=== PATIENT | male | born 1960 | race Caucasian/White ===

== ENCOUNTER → 2021-08-17 10:12 | Outpatient (CLI) | payer OTHER, MEDICAID, SELFPAY ==
--- NOTE | 2021-08-17 10:13 | DI.US.S_ITS ---
PROCEDURE: US SOFT TISSUE HEAD AND NECK INDICATIONS: SWOLLEN NODES BILATERAL CERVICAL CHAIN TECHNIQUE: Real-time scanning was performed of the neck region of interest, with image documentation. COMPARISON: None. FINDINGS: Scanning is performed at the areas clinical concern involving the left submandibular region. Within these areas, no masses are seen. There are no enlarged lymph nodes. IMPRESSION: No enlarged lymph nodes are seen. Negative for masses. Dictated by: Maikol Rabago M.D. on 08/17/2021 at 10:06 Approved by: Maikol Rabago M.D. on 08/17/2021 at 10:07
== END ==
PROVIDERS: PCP Student in an Organized Health Care Education/Training Program; Referring Provider Student in an Organized Health Care Education/Training Program; Visit Provider Student in an Organized Health Care Education/Training Program
DX: R59.0 Localized enlarged lymph nodes (principal)
CPT/HCPCS: 76536

== ENCOUNTER → 2022-08-26 16:02 | Outpatient (CLI) | payer OTHER, SELFPAY ==
[2022-08-26 17:16] LABS: Hemoglobin A1C% w Est Avg Glu 5.5 % (4.0-6.0)
[2022-08-26 17:43] LABS: Prostate Specific Antigen Scrn 4.42 ng/mL (0.1-4.0)
[2022-08-26 18:23] LABS: BUN Creatinine Ratio 27.8 (6-22); Blood Urea Nitrogen 22 mg/dL (9-20); Calcium 8.9 mg/dL (8.4-10.2); Carbon Dioxide 28 mmol/L (22-32); Chloride 102 mmol/L (98-107); Cholesterol 184 mg/dL (140-199); Estimated Glomerular Filt Rate > 60 mL/min (>60); Glucose 71 mg/dL (80-110); HDL Cholesterol 44 mg/dL (40-60); HEMOLYSIS < 15 (0-50); LDL Cholesterol Calculated 78 mg/dL (<100); Potassium 4.3 mmol/L (3.4-5.1); Sodium 140 mmol/L (137-145); Triglycerides 309 mg/dL (35-150)
[2022-08-26 19:11] LABS: Hep C Virus Ab w/Reflex Quant NEGATIVE s/c (NEGATIVE)
== END ==
PROVIDERS: PCP Student in an Organized Health Care Education/Training Program; Referring Provider Urology; Visit Provider Urology
DX: E78.2 Mixed hyperlipidemia (principal); Z11.59 Encounter for screening for other viral diseases; R73.03 Prediabetes; I10 Essential (primary) hypertension; Z12.5 Encounter for screening for malignant neoplasm of prostate
CPT/HCPCS: 36415; 80048; 80061; 83036; 86803; G0103

== ENCOUNTER → 2022-09-19 15:11 | Outpatient (CLI) | payer OTHER, SELFPAY ==
[2022-09-21 08:26] LABS: PSA Free % 16.2 % (.); PSA, Total 2.6 ng/mL (0.0-4.0)
== END ==
PROVIDERS: PCP Student in an Organized Health Care Education/Training Program; Referring Provider Urology; Visit Provider Urology
DX: N40.0 Benign prostatic hyperplasia without lower urinary tract symptoms (principal); R39.9 Unspecified symptoms and signs involving the genitourinary system
CPT/HCPCS: 36415; 84153; 84154

== ENCOUNTER → 2023-06-24 14:39 | Outpatient (CLI) | payer OTHER, MEDICARE, SELFPAY ==
[2023-06-24 15:14] LABS: Hematocrit 38.9 % (41-53); Hemoglobin 13.4 g/dL (13.5-17.5); Mean Corpuscular HGB Conc 34.5 % (30-36); Mean Corpuscular Hemoglobin 29.4 PG (26-34); Mean Corpuscular Volume 85.2 fL (80-100); Platelet Count 139 X10^3/uL (150-400); Red Blood Cell Count 4.56 X10^6/uL (4.5-5.9); Red Cell Distribution Width 13.5 % (11.6-14.8); White Blood Cell Count 5.8 X10^3/uL (4.5-11.0)
[2023-06-24 15:31] LABS: Alanine Aminotransferase 32 IU/L (<50); Albumin 4.4 g/dL (3.5-5.0); Albumin Globulin Ratio 1.6 (1.0-2.8); Alkaline Phosphatase 54 U/L (38-126); Aspartate Aminotransferase 36 IU/L (17-59); BUN Creatinine Ratio 32.4 (6-22); Bilirubin Total 1.1 mg/dL (0.2-1.3); Blood Urea Nitrogen 22 mg/dL (9-20); Carbon Dioxide 25 mmol/L (22-32); Chloride 102 mmol/L (98-107); Cholesterol 172 mg/dL (140-199); Estimated Glomerular Filt Rate > 60 mL/min (>60); Globulin 2.7 g/dL (1.7-4.1); Glucose 108 mg/dL (80-110); HDL Cholesterol 42 mg/dL (40-60); HEMOLYSIS 23 (0-50); LDL Cholesterol Calculated 80 mg/dL (<100); Potassium 4.3 mmol/L (3.4-5.1); Sodium 136 mmol/L (137-145); Total Protein 7.1 g/dL (6.3-8.2); Triglycerides 252 mg/dL (35-150)
[2023-06-24 16:00] LABS: TSH w/ Reflex to FT4 1.63 uIU/mL (0.47-4.68)
== END ==
PROVIDERS: PCP Internal Medicine; Referring Provider Internal Medicine; Visit Provider Internal Medicine
DX: E78.2 Mixed hyperlipidemia (principal); I10 Essential (primary) hypertension
CPT/HCPCS: 36415; 80053; 80061; 84443; 85027

== ENCOUNTER → 2023-10-15 10:55 | Outpatient (CLI) | payer MEDICARE, MEDICAID, SELFPAY ==
[2023-10-15 11:32] LABS: Hemoglobin A1C% w Est Avg Glu 5.5 % (4.0-6.0)
[2023-10-15 12:31] LABS: Vitamin B12 318 pg/mL (239-931)
[2023-10-17 16:54] LABS: Alpha-1-Globulin 0.2 g/dL (0.0-0.4); Alpha-2-Globulin 0.6 g/dL (0.4-1.0); Gamma Globulin 0.8 g/dL (0.4-1.8); Globulin Total 2.7 g/dL (2.2-3.9); Protein, Total 6.7 g/dL (6.0-8.5)
[2023-10-18 07:36] LABS: PSA Free % 16.6 % (.); PSA, Total 3.2 ng/mL (0.0-4.0)
== END ==
LOC: LAB 10:56
PROVIDERS: PCP Internal Medicine; Referring Provider Internal Medicine; Visit Provider Internal Medicine
DX: R73.01 Impaired fasting glucose (principal); E53.8 Deficiency of other specified B group vitamins; R77.9 Abnormality of plasma protein, unspecified; R97.20 Elevated prostate specific antigen [PSA]
CPT/HCPCS: 36415; 82607; 83036; 84153; 84154; 84155; 84165

== ENCOUNTER 2023-11-28 12:12 | Day surgery (SDC) | payer MEDICARE, MEDICAID, SELFPAY ==
[2023-11-28] MEDS: LACTATED RINGERS 1,000 ML 42 ML IV (12:23)
[2023-11-28 12:40] VITALS: BP 146/85; PULSE 77; RESP 18; TEMP 37.1; O2SAT 96
--- NOTE | 2023-11-28 13:05 | P.HP_ITS ---
History of Present Illness History of Present Illness Date Patient Seen: 11/28/23 Time Patient Seen: 13:05 Chief complaint: Colonoscopy Narrative: 63-year-old man here for screening colonoscopy. Personal history of colonic polyps last colonoscopy 5 years ago. No family history of intestinal malignancy. He has history of diverticular disease occasionally has pain with bowel movements. [facility] Medical History Polyneuropathy, unspecified Allergic rhinitis History of colonic polyps Chronic low back pain Primary osteoarthritis involving multiple joints Severe obesity (BMI 35.0-35.9 with comorbidity) Impaired fasting glucose Bladder outlet obstruction Elevated PSA Benign prostatic hyperplasia with lower urinary tract symptoms Unilateral post-traumatic osteoarthritis, left knee Cervical lymphadenopathy Primary osteoarthritis of right knee Prurigo nodularis Nuclear sclerosis Vitreous syneresis CAD (coronary artery disease) Family History Father Cancer Hyperlipidemia Hypertension Eczema Gout Hearing impairment Mother Hypertension Social History marital status: details: ([place]), retired/disabled [employer], [employer] number of children: 4 occupational status: other Smoking Status: Former smoker Tobacco: How many years used: 10 alcohol intake: former caffeine: Yes Type(s) of exercise: walking frequency: daily duration: > 90 minutes/day Meds Home Medications and Allergies Home Medications Medication Instructions Recorded Confirmed Type Vitamin E 1 cap PO DAILY 05/16/21 11/28/23 History aspirin 81 mg tablet,delayed 81 mg PO DAILY 05/16/21 11/28/23 History release (Adult Low Dose Aspirin) cholecalciferol (vitamin D3) 50 100 mcg PO DAILY 05/16/21 11/28/23 History mcg (2,000 unit) capsule coenzyme Q10 300 mg capsule 300 mg PO DAILY 05/16/21 11/28/23 History vitamin B complex 4 - 5 tab PO DAILY 05/16/21 11/28/23 History atorvastatin 40 mg tablet 40 mg PO BEDTIME #90 tabs 09/16/22 11/28/23 Rx sildenafil 100 mg tablet 100 mg PO DAILY PRN sexual 02/18/23 11/28/23 Rx activity #15 tabs tadalafil 20 mg tablet 20 mg PO DAILY PRN sexual activity 02/18/23 11/28/23 Rx #14 tabs tadalafil 5 mg tablet (Cialis) 5 mg PO DAILY Bladder outlet 02/18/23 11/28/23 Rx obstruction #30 tabs Turmeric 2 tab PO DAILY 06/24/23 11/28/23 History magnesium 250 mg tablet 250 mg PO BID 06/24/23 11/28/23 History potassium gluconate 600 mg (99 mg) 2,400 - 3,600 mg PO DAILY 06/24/23 11/28/23 History tablet tamsulosin 0.4 mg capsule See Rx Instructions .Route 08/06/23 11/28/23 Rx .COMPLEX #180 caps omeprazole magnesium 20 mg 20 mg PO DAILY 10/15/23 10/15/23 History tablet,delayed release (Prilosec OTC) losartan 100 mg tablet 100 mg PO DAILY #90 tabs 11/14/23 11/28/23 Rx Allergies Allergy/AdvReac Type Severity Reaction Status Date / Time cortisone Allergy Severe Swollen Verified 11/28/23 12:29 leg 2x the size, leg felt on fire. Exam Vital Signs (past 8 hours): - 11/28/23 12:40 Temperature 98.8 F Pulse Rate 77 Respiratory Rate 18 Blood Pressure 146/85 H Pulse Oximetry 96 Oxygen Delivery Method Room Air Oxygen Delivery Method Room Air Narrative Exam Narrative: General adult man alert oriented no acute distress Chest nonlabored respiration Extremities warm well perfused Assessment & Plan Assessment & Plan narrative: The patient requires colorectal screening and colonoscopy is recommended. Technical details were discussed. Risks, benefits, alternatives explained. Risks including but not limited to myocardial infarction, aspiration, bleeding, pain, missed lesion, incomplete examination, need for further radiographic studies, intestinal injury, and need for major abdominal surgery were discussed. All questions were answered to their satisfaction, and they are in agreement with this plan.
[2023-11-28 13:37] VITALS: BP 136/78; PULSE 93; RESP 13; TEMP 36.7; O2SAT 92
--- NOTE | 2023-11-28 13:39 | P.OP.COLON_ITS ---
Operative Date/Time/Diagnoses Date of procedure: 11/28/23 Time of procedure: 13:39 Pre-op diagnosis: Personal history of colonic polyps Procedure & Clinicians Study performed: Screening colonoscopy Same procedure as scheduled: Yes Indications: Colorectal screening Surgeon: Osvaldo Villalba Procedure Notes Procedure in detail: The history and physical was performed/updated and the patient is ASA class is 3. The procedure was discussed in detail with the patient. Potential risks complications including infection, bleeding, missed diagnosis, perforation, need for surgery, and were explained. Their questions were answered and informed consent was obtained. Patient was brought to the procedure room and placed standard monitoring equipment. The patient's vital signs were monitored continuously throughout the entire procedure. Prior to starting time-out was performed. The patient was placed in the left lateral recumbent position. Procedural sedation was administered by anesthesia. Examination began with a thorough inspection of the perianal area there was no evidence of fissures, fistulae, external hemorrhoids or cutaneous malignancy. The colonoscopy scope was then placed into the anal canal and was advanced to the cecum, which was identified by the ileocecal valve, the appendiceal orifice and the confluence of the taenia. The scope was then slowly withdrawn examining colon thoroughly in all directions, irrigating it of any residual stool. The scope was retroflexed within the rectum The patient tolerated the procedure well. They will be discharged once criteria are met. The prep was of fair quality. The withdrawl time was 6 minutes. FINDINGS * No masses or polyps * Moderate sigmoid diverticulosis Findings: divertiulosis Specimen(s): none sent Complications: none Impression: Diverticulosis Post-procedure Recommendations: Colonoscopy in 10 years and High fiber diet Disposition: same day surgery
[2023-11-28 13:44] VITALS: BP 136/80; PULSE 75; RESP 24; O2SAT 93
[2023-11-28 14:02] VITALS: BP 131/75; PULSE 68; RESP 18; O2SAT 97
== END 2023-11-28 14:17 | disposition home or self-care (01) ==
PROVIDERS: PCP Internal Medicine; Referring Provider Surgery; Visit Provider Surgery
PROC: 0DJD8ZZ Inspection of Lower Intestinal Tract, Via Natural or Artificial Opening Endoscopic (ICD-10-PCS; CPT 45378; principal; 2023-11-28 13:00)
DX: Z12.11 Encounter for screening for malignant neoplasm of colon (principal); Z86.010 Personal history of colon polyps; K57.30 Diverticulosis of large intestine without perforation or abscess without bleeding
CPT/HCPCS: G0105; J2704

== ENCOUNTER 2024-06-15 08:45 | Day surgery (SDC) | payer MEDICARE, MEDICAID, SELFPAY ==
[2024-06-14 09:29] VITALS: BMI 38.0
[2024-06-15] VITALS (9 sets, daily range): BP systolic 143–159; BP diastolic 77–89; PULSE 71–105; RESP 12–20; TEMP 36.4–36.9; O2SAT 93–97; BMI 38.0
--- NOTE | 2024-06-15 | PATH_ITS ---
[facility] Accession Number: [id number] No. of containers..01 Tissue . 01 Material submitted: . prostate - PROSTATE CHIPS . 01 Diagnosis: PROSTATE CHIPS, TRANSURETHRAL PROSTATE TISSUE RESECTION: Benign prostatic parenchyma (2 grams) with mild chronic inflammation and stromal/glandular hypertrophy. Negative for high-grade prostatic intraepithelial neoplasia and invasive malignancy. MRV 06/21/2024 1539 Local . 01 Electronically signed: . Ayad Funez MD, Pathologist NPI- [id number] . 01 Gross description: . Received in formalin with two patient identifiers and prostate chips, are multiple andino soft tissue fragments admixed with a moderate amount of hemorrhagic material, weighing 2 grams, aggregating to 3.6 x 2.4 x 1.2 cm, are three metal clips with green suture measuring 0.7 cm by 0.1 x 0.1 cm. All tissue submitted in A1-A2. ([id number]) /MRV 06/18/2024 1758 Local . 01 Pathologist provided ICD-10: N40.1 . 01 CPT . 145176 Specimen Comment: A courtesy copy of this report has been sent to [phone] Performed at: [address] [facility] [address], [place], [place] [id number] MD Neftali Preston MD Phone: [phone]
[2024-06-15] MEDS: LACTATED RINGERS 1,000 ML 21 ML IV (09:02)
--- NOTE | 2024-06-15 09:33 | PM.PREOP ---
Pre-operative Note COVID-19 COVID-19 status: Not tested Interval Note History & Physical reviewed/Exam performed by Physician: Yes Changes to H&P: No
[2024-06-15] MEDS: ACETAMINOPHEN 325 MG TABLET 975 MG PO (09:37)
[2024-06-15] MEDS: CEFAZOLIN VIAL 3 GM in SODIUM CHLORIDE 0.9% 100 ML IV (10:38)
--- NOTE | 2024-06-15 10:51 | SUR.OPER ---
Lithotomy on padded OR bed, head on pillow, arms secured on padded arm boards at <90 degrees abduction. Legs secured in padded yellow fins stirrups. Safety strap across abdomen.
--- NOTE | 2024-06-15 12:10 | P.OP_ITS ---
Procedure & Clinicians Procedure: 1. Aquablation 2. Transrectal ultrasound of the prostate benign 3. Transurethral resection of prostate with fulguration 4. Removal of UroLift clips Same procedure as scheduled: Yes Indications: This 64-year-old male had profound benign prostatic hyperplasia with lower urinary tract symptoms failing medical management and history of UroLift. Was found to be a suitable candidate for Aquablation and presents at this time having a prostate in the 63 g range a uroflow with a Q max in the 4 range and signs of outlet obstruction incomplete emptying. Surgeon: Peng May Click Yes if Unassisted: Yes Anesthesia Type: General Operative Notes Findings: Urethral meatus is normal, urethra is normal along its length with normal mucosa of the sphincter as well coapted. At the beginning of the procedure the prostate exhibited marked obstructive character including some bulging into the bladder with a small issues perhaps median lobe. At the end of the procedure prostatic fossa was widely patent there were 3 UroLift clips which were exposed and removed. The ureteral orifices were in normal position with clear efflux both at the beginning of the procedure and after the Aquablation. The bladder exhibited severe trabeculation. A 22 [place]oc[place] three-way 30 cc hematuria catheter was left in good position with 45 cc in the balloon it was connected to continuous bladder irrigation. There were no other abnormalities or notable findings. Closure Type: not applicable Specimen(s): other (Prostate chips and UroLift clips) Applied: catheter (22 Moroccan three-way 30 cc hematuria catheter left in place 45 cc of sterile water in the balloon.) Estimated Blood Loss (mL): 50 Blood products transfused: none Procedure in detail: Procedure in detail: Patient was identified and after informed consent was obtained, the patient was brought to the operating room where he was placed in the supine position on the table once there anesthesia was induced and maintained. Ensuring an adequate level of anesthesia the patient was transitioned to the lithotomy position where he was prepped. With the patient prepped ensuring an adequate level of anesthesia, after time-out after administration of antibiotics the ultrasound probe was inserted in the following fashion. 60 cc of ultrasound gel was instilled in the patient's rectum followed by the ultrasound probe. The ultrasound probe was connected to the stress stepper which was managed to the articulating arm which was secured to the bed. With the ultrasound probe in place it was aligned and confirmation made that it was centered and aligned using both transverse and sagittal views. The bladder neck verumontanum the central transition zones were identified. The patient's prostate at previously been measured at 63 g. At this point the patient was draped in a sterile fashion and the 24 Moroc[place] Aquablation handpiece was inserted through the urethra prostate and into the bladder under direct vision. Cystoscopy was performed. As it was inserted via the real-time ultrasound the level of the external sphincter, verumontanum and bladder neck were noted. The with the tip of the hand piece in the bladder the handpiece was secured to the handpiece articulating arm which he had been secured to the bed. The alignment of the handpiece in the truss were performed to make sure that they were parallel and colinear. The aqua beam nozzle was confirmed to be centered and anterior to the bladder neck. The cystoscope was then retracted under direct visualization where the veru and external sphincter were noted. The tip of the scope was then positioned proximal to the external sphincter. The alignment of the truss probe and Aquablation handpiece was once again confirmed and compression applied to the truss probe. Horizontal alignment of the handpiece water jet was then performed and confirmed. The Aquablation beam and Aquablation treatment zones were then planned and defined using real-time live ultrasound. This would visualize the contour of the prostate external sphincter verumontanum and bladder neck. In the transverse you the radial angles and depth of resection were defined in the widest part of the prostate. Then in the sagittal view the aqua beam nozzle was identified in his position registered with the software. The length of treatment was then identified. The contours of treatment were then placed confirming started resection bladder neck mid prostate and end of resection. With the plan in place ensuring the patient was paralyzed and would not move the Aquablation treatment was started and followed with real-time ultrasound under ultrasound guidance. With the 1st pass completed the treatment plan for a 2nd pass was entered in and the Aquablation treatment was performed. With this completed the Aquablation handpiece was detached from the Aquablation arm and under direct vision with the cystoscope advanced to the tip of the Aquablation handpiece the hand piece was looked out. A resectoscope was then look in under direct vision. Helical evacuator was used to evacuate clot from the prostatic fossa and bladder. Then using the resecting element having identified the ureteral orifices the bladder neck was resected from the 2:00 a.m. to 10 o'clock position points of bleeding have been controlled with the electrocautery. 3 UroLift clips were identified and each sequentially resected. Anteriorly points of bleeding were controlled with the electrocautery. The apical tissue appeared to be adequately resected and at this point with hemostasis good and flushed to light pink effluent the [employer] evacuator was used to evacuate the clips and prostate chips. The resecting element was once again reinserted and points of bleeding controlled with the electrocautery. There were no other clips or chips within the bladder the ureteral orifices were in normal position and unaffected by the procedure. With the bladder full the scope was removed the patient had a vigorous stream at this point with aid of a catheter guide the [address] hematuria catheter was placed into the bladder the balloon filled with 45 cc of sterile water and placed to gravity drainage. The CBI was connected and the bladder irrigated and the effluent remained light pink to clear. At this point the patient was awakened having tolerated the procedure well after the ultrasound probe had been removed. There were no complications patient was transferred to the postanesthesia care unit for recovery with CBI running. Complications: none Post-operative Condition: stable Disposition: PACU Plan for aftercare: Patient will be followed in the postanesthesia care unit to see how his urine clears her did not in it decision made to discharge him to home or to bring him in overnight we will be made.
[2024-06-15] MEDS: OXYBUTYNIN 5 MG TABLET PO (12:21)
[2024-06-15] MEDS: PHENAZOPYRIDINE 100 MG TABLET 200 MG PO (12:21)
--- NOTE | 2024-06-15 13:30 | SUR.PHASEII ---
Patient ambulated to the bathroom, SBA, with irrigation.
[2024-06-15] MEDS: OXYCODONE IR 5 MG TABLET PO (13:36)
== END 2024-06-15 15:56 | disposition home or self-care (01) ==
PROVIDERS: PCP Internal Medicine; Referring Provider Urology; Visit Provider Urology
PROC: 0VT08ZZ Resection of Prostate, Via Natural or Artificial Opening Endoscopic (ICD-10-PCS; CPT 52597; principal; 2024-06-15 09:45)
DX: N40.1 Benign prostatic hyperplasia with lower urinary tract symptoms (principal); N13.8 Other obstructive and reflux uropathy; R39.198 Other difficulties with micturition; N52.9 Male erectile dysfunction, unspecified
CPT/HCPCS: 0421T; 82962; C2596; J0330; J0690; J1100; J2405; J2704; J3010

== ENCOUNTER → 2024-06-17 16:10 | Outpatient (CLI) | payer MEDICARE, MEDICAID, SELFPAY | PROVIDERS: PCP Internal Medicine; Visit Provider Urology | DX: R39.198 Other difficulties with micturition (principal); Z87.898 Personal history of other specified conditions | CPT/HCPCS: 51798; 81002; 87086 ==

== ENCOUNTER → 2024-06-28 14:58 | Outpatient (CLI) | payer MEDICARE, MEDICAID, SELFPAY | PROVIDERS: PCP Internal Medicine; Visit Provider Urology | DX: N39.43 Post-void dribbling (principal); N40.1 Benign prostatic hyperplasia with lower urinary tract symptoms; R39.198 Other difficulties with micturition | CPT/HCPCS: 51798; 81002; 87086 ==

== ENCOUNTER → 2024-08-12 15:17 | Outpatient (CLI) | payer MEDICARE, MEDICAID, SELFPAY ==
--- NOTE | 2024-08-12 15:18 | DI.RAD.S_ITS ---
PROCEDURE: XR CHEST 2V INDICATIONS: Cough TECHNIQUE: 2 views of the chest were acquired. COMPARISON: None. FINDINGS: Surgical changes and devices: None. Lungs and pleura: Increased bronchovascular markings in bilateral hilar region are seen with mild bronchial wall thickening. No definite focal infiltrate. No pleural effusions or pneumothorax. Mediastinum: Mediastinal contours are normal. Heart size is normal. Bones and chest wall: No suspicious bony abnormalities. Soft tissues appear unremarkable. IMPRESSION: Suggestion of reactive airway disease such as bronchitis or viral illness. No definite focal infiltrate. No pleural effusion or pneumothorax. Dictated by: Syed Cavazos M.D. on 08/12/2024 at 16:29 Approved by: Syed Cavazos M.D. on 08/12/2024 at 16:31
== END ==
PROVIDERS: PCP Internal Medicine; Referring Provider Nurse Practitioner Family; Visit Provider Nurse Practitioner Family
DX: R05.9 Cough, unspecified (principal)
CPT/HCPCS: 71046

== ENCOUNTER → 2024-09-14 16:10 | Outpatient (CLI) | payer MEDICARE, MEDICAID, SELFPAY ==
[2024-09-14 16:55] LABS: Hematocrit 38.5 % (41-53); Hemoglobin 13.2 g/dL (13.5-17.5); Mean Corpuscular HGB Conc 34.3 % (30-36); Mean Corpuscular Hemoglobin 29.3 PG (26-34); Mean Corpuscular Volume 85.3 fL (80-100); Platelet Count 141 X10^3/uL (150-400); Red Blood Cell Count 4.51 X10^6/uL (4.5-5.9); Red Cell Distribution Width 14.1 % (11.6-14.8); White Blood Cell Count 5.6 X10^3/uL (4.5-11.0)
[2024-09-14 17:04] LABS: Hemoglobin A1C% w Est Avg Glu 5.4 % (4.0-6.0)
[2024-09-14 17:21] LABS: Alanine Aminotransferase 43 IU/L (<50); Albumin 4.2 g/dL (3.5-5.0); Albumin Globulin Ratio 1.8 (1.0-2.8); Alkaline Phosphatase 66 U/L (38-126); Aspartate Aminotransferase 37 IU/L (17-59); Bilirubin Total 0.8 mg/dL (0.2-1.3); Blood Urea Nitrogen 19 mg/dL (9-20); Calcium 8.5 mg/dL (8.4-10.2); Carbon Dioxide 29 mmol/L (22-32); Chloride 106 mmol/L (98-107); Cholesterol 188 mg/dL (140-199); Estimated Glomerular Filt Rate > 60 mL/min (>60); Globulin 2.3 g/dL (1.7-4.1); Glucose 120 mg/dL (80-110); HDL Cholesterol 42 mg/dL (40-60); HEMOLYSIS < 15 (0-50); Potassium 4.4 mmol/L (3.4-5.1); Sodium 138 mmol/L (137-145); Total Protein 6.5 g/dL (6.3-8.2); Triglycerides 459 mg/dL (35-150)
[2024-09-14 17:41] LABS: Creatinine Urine Random 147.35 mg/dL
[2024-09-14 17:50] LABS: Prostate Specific Antigen 3.12 ng/mL (0.10-4.00)
[2024-09-14 18:42] LABS: Microalbumin Urine Random 0.7 mg/dL (0-1.6)
== END ==
PROVIDERS: PCP Internal Medicine; Referring Provider Urology; Visit Provider Urology
DX: R73.01 Impaired fasting glucose (principal); E78.2 Mixed hyperlipidemia; R97.20 Elevated prostate specific antigen [PSA]; L40.50 Arthropathic psoriasis, unspecified
CPT/HCPCS: 36415; 80053; 80061; 82043; 82570; 83036; 84153; 85027

== ENCOUNTER → 2024-10-22 08:57 | Outpatient (CLI) | payer MEDICARE, MEDICAID, SELFPAY ==
[2024-10-22 09:59] LABS: Glucose 97 mg/dL (80-110); HDL Cholesterol 36 mg/dL (40-60)
[2024-10-22 10:05] LABS: Cholesterol 178 mg/dL (140-199); LDL Cholesterol Calculated 102 mg/dL (<100); Triglycerides 199 mg/dL (35-150)
== END ==
PROVIDERS: PCP Internal Medicine; Referring Provider Internal Medicine; Visit Provider Internal Medicine
DX: R73.01 Impaired fasting glucose (principal); E78.2 Mixed hyperlipidemia
CPT/HCPCS: 36415; 80061; 82947

== ENCOUNTER → 2025-04-15 15:29 | Outpatient (CLI) | payer MEDICARE, MEDICAID, SELFPAY ==
[2025-04-15 16:09] LABS: Add Manual Diff / Slide Review NO; Hematocrit 40.1 % (41-53); Hemoglobin 13.9 g/dL (13.5-17.5); Lymphocytes Absolute Auto 1800 /uL (1100-4500); Mean Corpuscular HGB Conc 34.7 % (30-36); Mean Corpuscular Hemoglobin 29.8 PG (26-34); Mean Corpuscular Volume 85.8 fL (80-100); Platelet Count 153 X10^3/uL (150-400)
[2025-04-15 16:39] LABS: Alanine Aminotransferase 25 IU/L (<50); Albumin 4.3 g/dL (3.5-5.0); Albumin Globulin Ratio 2.0 (1.0-2.8); Alkaline Phosphatase 53 U/L (38-126); Amylase 71 U/L (30-110); Blood Urea Nitrogen 18 mg/dL (9-20); Calcium 9.3 mg/dL (8.4-10.2); Carbon Dioxide 29 mmol/L (22-32); Chloride 103 mmol/L (98-107); Estimated Glomerular Filt Rate > 60 mL/min (>60); Globulin 2.2 g/dL (1.7-4.1); Glucose 95 mg/dL (70-99); HEMOLYSIS < 15 (0-50); Lipase 329 U/L (23-300); Potassium 4.7 mmol/L (3.4-5.1); Sodium 137 mmol/L (137-145); Total Protein 6.5 g/dL (6.3-8.2)
[2025-04-15 17:12] LABS: Prostate Specific Antigen 3.20 ng/mL (0.10-4.00)
== END ==
PROVIDERS: PCP Internal Medicine; Referring Provider Urology; Visit Provider Urology
DX: R97.20 Elevated prostate specific antigen [PSA] (principal); R10.9 Unspecified abdominal pain
CPT/HCPCS: 36415; 80053; 82150; 83690; 84153; 85025